=== PATIENT | female | born 1975 | race Two or more races ===

== ENCOUNTER → 2020-10-02 | Day surgery (SDC) | payer OTHER ==
[2020-09-28 13:50] LABS: Basophils # (auto) 0.1 10 ^3/uL (0-0.2); Eosinophils # (auto) 0.1 10 ^3/uL (0-0.8); Monocytes # (auto) 0.5 10 ^3/uL (0-1.3); Neutrophils # (auto) 4.8 10 ^3/uL (1.6-8.6); White Blood Cell 7.3 10^3/uL (4.4-10.8)
[2020-09-28 13:52] LABS: Basophils % (auto) 1.1 % (0.0-2.0); Eosinophils % (auto) 1.5 % (0.0-7.0); Hematocrit 40.8 % (36.0-46.0); Hemoglobin 13.9 g/dL (12.2-16.2); Lymphocytes # (auto) 1.8 10 ^3/uL (0.4-5.4); Lymphocytes % (auto) 25.1 % (10.0-50.0); Mean Corpuscular Hemoglobin 33.9 pg (28.0-32.0); Mean Corpuscular Hgb Conc. 34.1 g/dL (32.0-36.0); Mean Corpuscular Volume 99.4 fL (80.0-100.0); Neutrophils % (auto) 65.3 % (37.0-80.0); Nucleated Red Blood Cells % 0.1 %; Platelet Count (auto) 305 10^3/uL (140-450); Red Cell Distribution Width 13.1 % (11.8-14.3)
[2020-09-28 14:10] LABS: INR 0.95 (0.9-1.15); Partial Thromboplastin Time 23.7 sec (23.0-31.2)
[2020-09-28 14:21] LABS: Albumin 4.2 g/dL (3.4-5.0); Calcium 8.6 mg/dL (8.5-10.1); Potassium 3.7 mmol/L (3.5-5.1)
[2020-09-28 14:25] LABS: BUN/Creatinine Ratio 18.1; Bilirubin, Total 0.5 mg/dL (0.2-1.0); Total Protein 7.9 g/dL (6.4-8.2)
[~2020-10-02] VITALS: Ht 160 cm; Wt 72.6 kg
[~2020-10-02] MED LIST: LISI20TA28 PO; SIMETHICONE 40 MG/0.6 ML ORAL DROP ONE; diphenhdrAMINE HCL 50 MG/1 ML VL ONE
[2020-10-02] MEDS: fentaNYL CITRATE 100 MCG/2 ML VL ONE ×2 (10:26→10:32)
[2020-10-02] MEDS: MIDAZOLAM HCL 5 MG/ML-1ML VIAL ONE ×3 (10:26→10:36)
[2020-10-02 11:20] VITALS: BP 104/62
== END | disposition home or self-care (01) ==
LOC: GI 08:34
PROVIDERS: ATTEND Internal Medicine Gastroenterology
DX: Z12.11 Encounter for screening for malignant neoplasm of colon (principal); K63.89 Other specified diseases of intestine; K64.8 Other hemorrhoids; K62.89 Other specified diseases of anus and rectum; Z20.822 Contact with and (suspected) exposure to COVID-19; Z98.890 Other specified postprocedural states; Z79.899 Other long term (current) drug therapy
CPT/HCPCS: 36415; 45380; 80053; 81025; 84702; 85025; 85610; 85730; 88305; J1200; J2250; J3010; J7030; U0003; G0500